=== PATIENT | female | born 1975 | race Caucasian/White ===

== ENCOUNTER 2023-11-12 16:44 | Emergency (ER) | payer OTHER ==
[~2023-11-12] VITALS: Ht 177.8 cm; Wt 81.6 kg
[~2023-11-12 16:44] MED LIST: BENA20TA PO; TOP25 PO
[2023-11-12 17:00] VITALS: BP 144/90; PULSE 80; RESP 18; TEMP 98.4; O2SAT 97
[2023-11-12 17:20] VITALS: O2SAT 97
[2023-11-12 18:15] LABS: BASOPHILS % (AUTO) 0.5 % (0.0-2.0); EOSINOPHILS % (AUTO) 0.1 % (0.0-4.0); HEMATOCRIT 41.7 % (36-48); HEMOGLOBIN 14.1 g/dL (12.0-16.0); LYMPHOCYTES % (AUTO) 16.7 % (20.5-51.1); MEAN CORPUSCULAR HEMOGLOBIN 33 pg (27-31); MEAN CORPUSCULAR HGB CONC 34 g/dL (33-37); MEAN CORPUSCULAR VOLUME 96.9 fL (80-94); MONOCYTES # (AUTO) 0.4 K/uL (0.8-1.0); MONOCYTES % (AUTO) 6.2 % (1.7-9.3); NEUTROPHILS # (AUTO) 4.4 K/uL (1.8-7.7); NEUTROPHILS % (AUTO) 76.5 % (42.2-75.2); PLATELET COUNT (AUTO) 230 K/uL (140-450); RED CELL DISTRIBUTION WIDTH 13.8 % (11.6-13.7); WHITE BLOOD COUNT (AUTO) 5.7 K/uL (4.8-10.8)
[2023-11-12 18:49] LABS: ANION GAP 7.2 (8-16); CALCIUM 8.9 mg/dL (8.5-10.1); CARBON DIOXIDE 30.2 mmol/L (21-32); CREATININE 0.8 mg/dL (0.6-1.3); POTASSIUM 3.4 mmol/L (3.5-5.1)
[2023-11-12 19:15] LABS: APPEARANCE,URINE CLEAR (CLEAR); BILIRUBIN,URINE NEGATIVE (NEGATIVE); BLOOD, URINE NEGATIVE (NEGATIVE); COLOR,URINE YELLOW (YELLOW); LEUKOCYTE ESTERASE ,URINE NEGATIVE (NEGATIVE); NITRITE, URINE NEGATIVE (NEGATIVE); PH,URINE 7.5 (5.0-9.0); PROTEIN,URINE NEGATIVE (NEGATIVE); UGLUCOSE 3+ (NEGATIVE)
[2023-11-12 19:21] LABS: ALANINE AMINOTRANSFERASE 24 U/L (12-78); ALBUMIN 3.2 g/dL (3.4-5.0); ALKALINE PHOSPHATASE 52 U/L (50-136); ASPARTATE AMINOTRANSFERASE 17 U/L (15-37); BILIRUBIN,DIRECT 0.1 mg/dL (0.0-0.3); FREE T4 (FREE THYROXINE) 1.08 ng/dL (0.76-1.46); THYROID STIMULATING HORMONE 0.27 uIU/mL (0.34-3.74); TOTAL BILIRUBIN 0.4 mg/dL (0.0-1.0); TOTAL PROTEIN, SERUM 7.8 g/dL (6.4-8.2)
[2023-11-12] MEDS ORDERED: MECLIZINE 25 MG TAB PO ONE (19:35)
[2023-11-12] MEDS ORDERED: NACL 0.9% 1,000 ML IV ONE (19:35)
[2023-11-12] MEDS ORDERED: MECL-303 PO (19:56)
[2023-11-12 20:48] VITALS: BP 137/74; PULSE 64; RESP 18; TEMP 98.4; O2SAT 97
== END 2023-11-12 20:48 | disposition home or self-care (01) ==
LOC: MED 16:44
DX: R53.1 Weakness (principal); R42 Dizziness and giddiness; I10 Essential (primary) hypertension; Z98.890 Other specified postprocedural states; Z79.899 Other long term (current) drug therapy
CPT/HCPCS: 36415; 71045; 80048; 80076; 81003; 81025; 82948; 83735; 83880; 84439; 84443; 84484; 85025; 93005; 99285; J7030; J8597; Q0092